=== PATIENT | male | born 1965 | race Caucasian/White ===

== ENCOUNTER 2019-05-23 08:48 | Observation (INO) | payer OTHER ==
[~2019-05-23] VITALS: Ht 193 cm; Wt 183.3 kg
[2019-05-23] MEDS ORDERED: ALPR0.254 PO (09:20)
[2019-05-23] MEDS ORDERED: SULF1TAB24 PO (09:20)
[2019-05-23] MEDS ORDERED: ESCI10TA PO (09:20)
--- NOTE | 2019-05-23 09:22 | NUR ---
MALINI GENAO WAS IN TO SEE PT. PT STATES HIS CHEST PAIN IS "MOSTLY RESOLVED NOW," BUT C/O ANXIETY AND DIAPHORESIS. STATES THIS HAPPENS OFTEN. PT REPORTS DRINKING LAST NIGHT. Addendum: 05/23/19 at 0924 by HBENSON PT STATES HE'S HAD "CRAP IN MY LUNGS FOR FOUR MONTHS". IS CURRENTLY TAKING BACTRIM RX. REPORTS CHRONIC LEG SWELLING.
[2019-05-23] MEDS ORDERED: ASPIRIN 81 MG TABLET CHEW ONE (09:28)
--- NOTE | 2019-05-23 09:29 | NUR ---
SPO2 WAS 88-90% ON RA. PT PLACED ON 2.5L O2 NC. PT STATES HE WEARS CPAP AT NIGHT AT HOME FOR SLEEP APNEA.
[2019-05-23] MEDS ORDERED: ASPIRIN 81 MG TABLET CHEW PO ONE (09:30)
[2019-05-23 09:35] LABS: BASOPHILS # (AUTO) 0.06 x10^3/uL (0-0.1); BASOPHILS % (AUTO) 1 % (0-1); EOSINOPHILS # (AUTO) 0.29 x10^3/uL (0-0.4); EOSINOPHILS % (AUTO) 3 % (1-7); LYMPHOCYTES # (AUTO) 2.25 x10^3/uL (1-3.4); LYMPHOCYTES % (AUTO) 27 % (22-44); MD NO; MEAN CORPUSCULAR HGB CONC 33.7 g/dL (33.2-36.2); MEAN PLATELET VOLUME 7.5 fL (7.4-10.4); MONOCYTES # (AUTO) 0.48 x10^3/uL (0.2-0.8); MONOCYTES % (AUTO) 6 % (2-9); NEUTROPHILS # (AUTO) 5.33 x10^3/uL (1.8-6.8); NEUTROPHILS % (AUTO) 63 % (42-75); PLATELET COUNT 247 x10^3/uL (130-400); RED BLOOD COUNT 5.36 x10^6/uL (4.38-5.82); RED CELL DISTRIBUTION WIDTH 13.4 % (9.4-14.8)
[2019-05-23 09:40] LABS: CHLORIDE 102 mmol/L (98-107)
[2019-05-23 10:03] LABS: ALBUMIN 3.3 g/dL (3.4-5.0); ANION GAP 8 mmol/L (5-15); CALCIUM 8.7 mg/dL (8.5-10.1); CREATININE 0.92 mg/dL (0.7-1.3)
--- NOTE | 2019-05-23 10:04 | NUR ---
ERP AT BS.
[2019-05-23 10:06] LABS: TROPONIN I < 0.015 ng/mL (0.000-0.045)
--- NOTE | 2019-05-23 10:24 | NUR ---
ERP AT FOR RECHECK.
--- NOTE | 2019-05-23 10:52 | NUR ---
MALINI GENAO WAS IN FOR RECHECK.
--- NOTE | 2019-05-23 11:19 | NUR ---
ADMITTING PA AT BS NOW.
[2019-05-23] MEDS ORDERED: METHOCARBAMOL 750 MG TABLET PO PRN (11:30)
[2019-05-23] MEDS ORDERED: LIDODERM 5% PATCH TD PRN (11:30)
[2019-05-23] MEDS ORDERED: ACETAMINOPHEN 325 MG TABLET PO PRN (11:30)
[2019-05-23] MEDS ORDERED: KETOROLAC 30 MG/1 ML IV PRN (11:30)
[2019-05-23] MEDS ORDERED: ONDANSETRON 2MG/ML, 2ML IVPush PRN (11:30)
[2019-05-23] MEDS ORDERED: ONDANSETRON ODT 4 MG PO PRN (11:30)
[2019-05-23] MEDS ORDERED: IBUPROFEN 600 MG TABLET PO PRN (11:30)
[2019-05-23] MEDS ORDERED: morphine SULFATE 10 MG/ML, 1ML IVPush PRN (11:30)
--- NOTE | 2019-05-23 11:59 | NUR ---
PT TAKEN TO [place] WITH TECH VIA WC, THEN WILL BE TRANSPORTED TO TELE [id number].
[2019-05-23] MEDS ORDERED: LORazepam 2 MG/ML, 1ML ONE (12:25)
[2019-05-23] MEDS ORDERED: LORazepam 2 MG/ML, 1ML IVPush ONE (12:30)
[2019-05-23 12:40] VITALS: BP 169/95
[2019-05-23 15:38] LABS: TROPONIN I < 0.015 ng/mL (0.000-0.045)
[2019-05-23] MEDS: THIAMINE 100MG TABLET PO SCH (15:55)
[2019-05-23] MEDS: INSULIN LISPRO 100 UNITS/ML, PEN SQ-INSULIN SCH ×2 (17:27→20:48)
[2019-05-23 18:29] VITALS: BP 156/89
[2019-05-23] MEDS: SULFAMETH./TRIMETHOPRIM DS 800MG/160MG TABLET PO SCH (20:47)
[2019-05-23 21:29] LABS: TROPONIN I < 0.015 ng/mL (0.000-0.045)
[2019-05-24 00:24] VITALS: BP 148/88
[2019-05-24] MEDS ORDERED: ASPIRIN 325 MG TABLET PO SCH (06:00)
[2019-05-24 06:09] LABS: BASOPHILS # (AUTO) 0.05 x10^3/uL (0-0.1); BASOPHILS % (AUTO) 1 % (0-1); EOSINOPHILS # (AUTO) 0.41 x10^3/uL (0-0.4); EOSINOPHILS % (AUTO) 6 % (1-7); LYMPHOCYTES # (AUTO) 2.24 x10^3/uL (1-3.4); LYMPHOCYTES % (AUTO) 31 % (22-44); MD NO; MEAN CORPUSCULAR HEMOGLOBIN 34.4 pg (27.5-34.5); MEAN CORPUSCULAR HGB CONC 33.1 g/dL (33.2-36.2); MEAN CORPUSCULAR VOLUME 103.9 fL (81-97); MONOCYTES # (AUTO) 0.51 x10^3/uL (0.2-0.8); MONOCYTES % (AUTO) 7 % (2-9); NEUTROPHILS # (AUTO) 4.12 x10^3/uL (1.8-6.8); NEUTROPHILS % (AUTO) 56 % (42-75); PLATELET COUNT 211 x10^3/uL (130-400); RED BLOOD COUNT 5.06 x10^6/uL (4.38-5.82); RED CELL DISTRIBUTION WIDTH 13.1 % (9.4-14.8)
[2019-05-24 06:25] LABS: CHLORIDE 102 mmol/L (98-107)
[2019-05-24] MEDS ORDERED: LORazepam 2 MG/ML, 1ML IVPush ONE ×2 (06:30→11:00)
[2019-05-24 06:44] LABS: ALANINE AMINOTRANSFERASE 70 U/L (12-78); ALBUMIN 2.8 g/dL (3.4-5.0); ALKALINE PHOSPHATASE 76 U/L (45-117); ANION GAP 7 mmol/L (5-15); BILIRUBIN,TOTAL 0.7 mg/dL (0.2-1.0); CALCIUM 8.8 mg/dL (8.5-10.1); CHOL/HDL RATIO 6.1; CHOLESTEROL, TOTAL 183 mg/dL (140-239); CREATININE 0.85 mg/dL (0.7-1.3); HDL CHOL % 16 % (26-37); HDL CHOLESTEROL (DIRECT) 30 mg/dL (40-60); LDL CHOLESTEROL,CALCULATED 111 mg/dL (54-169); LDL/HDL RATIO 3.7 (0.5-3.0); TOTAL PROTEIN 6.6 g/dL (6.4-8.2); TRIGLYCERIDES 208 mg/dL (50-200); VLDL CHOLESTEROL 42 mg/dL (0-25)
[2019-05-24 06:50] VITALS: BP 154/95
[2019-05-24] MEDS: INSULIN LISPRO 100 UNITS/ML, PEN SQ-INSULIN SCH ×2 (07:00→12:43)
[2019-05-24] MEDS ORDERED: REGADENOSON 0.4 MG/5 ML SYRINGE ONE (07:11)
[2019-05-24] MEDS ORDERED: ESCITALOPRAM 10MG TABLET PO SCH (09:00)
[2019-05-24] MEDS ORDERED: FOLIC ACID 1 MG TABLET PO SCH (09:00)
[2019-05-24] MEDS: SULFAMETH./TRIMETHOPRIM DS 800MG/160MG TABLET PO SCH (12:04)
[2019-05-24] MEDS: THIAMINE 100MG TABLET PO SCH (12:04)
[2019-05-24 12:37] VITALS: BP 153/99
[2019-05-24] MEDS ORDERED: ASPI-515 PO (15:03)
[2019-05-24] MEDS ORDERED: METF500T PO (15:05)
[2019-05-24] MEDS ORDERED: ATORVASTATIN 40 MG TABLET PO SCH (21:00)
== END 2019-05-24 18:28 | disposition home or self-care (01) ==
LOC: ED 09:42 → EDIP 10:58 → INTOOBSV 10:58 → 5SO 12:21
PROVIDERS: ADMIT Internal Medicine; ATTEND Internal Medicine
DX: R07.9 Chest pain, unspecified (principal); F32.9 Major depressive disorder, single episode, unspecified; F41.9 Anxiety disorder, unspecified; G47.33 Obstructive sleep apnea (adult) (pediatric); E66.01 Morbid (severe) obesity due to excess calories; F10.10 Alcohol abuse, uncomplicated; J06.9 Acute upper respiratory infection, unspecified; E11.65 Type 2 diabetes mellitus with hyperglycemia; I10 Essential (primary) hypertension; J98.11 Atelectasis; D75.89 Other specified diseases of blood and blood-forming organs; Z87.891 Personal history of nicotine dependence; Z68.41 Body mass index [BMI] 40.0-44.9, adult
CPT/HCPCS: 36415; 71045; 78452; 80048; 80053; 80061; 82040; 82607; 82962; 83036; 84443; 84484; 85025; 85379; 93005; 93017; 96372; 96374; 96376; 99284; A9502; C9898; G0378; J1815; J2060; J2785